=== PATIENT | male | born 1995 | race Caucasian/White ===

== ENCOUNTER 2018-08-27 13:13 | Emergency (ER) | payer SELFPAY ==
[2018-08-27 13:19] VITALS: BP 120/77; PULSE 106; RESP 16; TEMP 98.4; O2SAT 99; BMI 22.7
--- NOTE | 2018-08-27 14:57 | ED PDOC ---
HPI: Abdomen Time Seen by Provider: 08/27/18 13:22 Chief Complaint (Nursing): Abdominal Pain Chief Complaint (Provider): Abdominal pain since 5am History Per: Patient History/Exam Limitations: no limitations Onset/Duration Of Symptoms: Hrs Outside of [place] travel?: No Current Symptoms Are (Timing): Still Present Severity: Moderate Pain Scale Rating Of: 5 Location Of Pain/Discomfort: RLQ, Epigastric Additional Complaint(s): 23 yo male with no medical presents for evaluation of abdominal pain. PT states pain woke him up at 5am and was in the epigastric area. PT states he then felt a dull sensation in the RLQ. Pt states he also has no appetite. PT denies fever/chills. Pt deneis similar in the past. No medications take for pain. Past Medical History Reviewed: Historical Data, Nursing Documentation, Vital Signs Vital Signs: Last Vital Signs Temp 98.4 F 08/27/18 13:18 Pulse 106 H 08/27/18 13:18 Resp 16 08/27/18 13:18 BP 120/77 08/27/18 13:18 Pulse Ox 99 08/27/18 13:18 Primary Care Provider: FAMILY PROVIDER,NO - Medical History PMH: No Chronic Diseases - Surgical History Surgical History: No Surg Hx - Family History Family History: States: No Known Family Hx - Living Arrangements Living Arrangements: With Family - Social History Current smoker - smoking cessation education provided: No - Allergies Allergies/Adverse Reactions: Allergies Allergy/AdvReac Type Severity Reaction Status Date / Time No Known Allergies Allergy Verified 08/27/18 13:24 Review of Systems ROS Statement: Except As Marked, All Systems Reviewed And Found Negative Constitutional: Negative for: Fever, Chills Gastrointestinal: Positive for: Abdominal Pain, Other (Decreased appetite). Negative for: Nausea, Vomiting, Diarrhea Neurological: Negative for: Weakness, Numbness, Confusion, Dizziness Physical Exam - Reviewed Nursing Documentation Reviewed: Yes Vital Signs Reviewed: Yes - Physical Exam Appears: Positive for: Well, Non-toxic, No Acute Distress Head Exam: Positive for: ATRAUMATIC, NORMAL INSPECTION, NORMOCEPHALIC Skin: Positive for: Normal Color, Warm, DRY Eye Exam: Positive for: Normal appearance ENT: Positive for: Normal ENT Inspection Neck: Positive for: Normal Cardiovascular/Chest: Positive for: Regular Rate, Rhythm Respiratory: Positive for: Normal Breath Sounds. Negative for: Accessory Muscle Use, Respiratory Distress Gastrointestinal/Abdominal: Positive for: Soft, Tenderness (RLQ with rebound ). Negative for: Normal Exam Back: Positive for: Normal Inspection Extremity: Positive for: Normal ROM Neurological/Psych: Positive for: Awake, Alert, Normal Tone - ECG O2 Sat by Pulse Oximetry: 99 Pulse Ox Interpretation: Normal Medical Decision Making Medical Decision Making: PT not in room on when RN Mariam goes to get labs. Discussed differential with patient including appedicitis, labs and CT scan with patient during evaluation. PT aware of concern of appendicitis and possible surgery if confirmed. Disposition - Clinical Impression Clinical Impression: Abdominal pain - Disposition Referrals: FAMILY PROVIDER,NO [Primary Care Provider] - Disposition: Left W/O Treatment Disposition Time: 14:01 Condition: UNKNOWN Forms: [employer] (Yoruba)
== END 2018-08-27 14:46 | disposition left against medical advice (07) ==
LOC: SUPCPDRO 13:13 → H.ER 13:13
DX: R10.13 Epigastric pain (principal)